=== PATIENT | male | born 1970 | race Caucasian/White ===

== ENCOUNTER 2023-03-11 17:58 | Emergency (ER) | payer BC ==
[2023-03-11] MEDS ORDERED: Bacitracin Oint 1 GM U/D Packet TOP ONE (18:33)
== END 2023-03-11 18:45 | disposition home or self-care (01) ==
LOC: JP.ED 17:58
DX: S60.451A Superficial foreign body of left index finger, initial encounter (principal); W45.8XXA Other foreign body or object entering through skin, initial encounter
CPT/HCPCS: 99282